=== PATIENT | female | born 1960 | race Caucasian/White ===

== ENCOUNTER 2017-03-14 15:41 | Emergency (ER) | payer OTHER ==
[~2017-03-14] VITALS: Ht 172.7 cm; Wt 89.9 kg
[2017-03-14 15:55] VITALS: BP 147/91
[2017-03-14] MEDS ORDERED: LIDOCAINE VISCOUS 2% 20 ML UDC ONE (16:17)
[2017-03-14] MEDS ORDERED: ALUMINUM HYD/MAG/SIMETHICONE 30 ML UDC ONE (16:17)
[2017-03-14] MEDS ORDERED: DICYCLOMINE HCL LIQUID 10 MG/5 ML UDC ONE (16:29)
[2017-03-14] MEDS ORDERED: LIDOCAINE VISCOUS 2% 20 ML UDC PO ONE (17:00)
[2017-03-14] MEDS ORDERED: DICYCLOMINE HCL LIQUID 10 MG/5 ML UDC PO ONE (17:00)
[2017-03-14] MEDS ORDERED: ALUMINUM HYD/MAG/SIMETHICONE 30 ML UDC PO ONE (17:00)
--- NOTE | 2017-03-14 17:03 | NUR ---
AFTER COMPLETING EKG PT WAS GIVEN GI COCKTAIL INSTRUCTED BY . PT CONTINUES TO WAIT FOR AVAILABLE ROOM FOR MD GALLO.
== END 2017-03-14 17:28 | disposition left against medical advice (07) ==
LOC: MED 15:41
DX: R10.9 Unspecified abdominal pain (principal); Z53.21 Procedure and treatment not carried out due to patient leaving prior to being seen by health care provider
CPT/HCPCS: 81002; 81025; 93005; 99281; 99283

== ENCOUNTER 2017-05-07 10:22 | Emergency (ER) | payer OTHER ==
[~2017-05-07] VITALS: Ht 170.2 cm; Wt 88.5 kg
[2017-05-07 10:49] VITALS: BP 141/89
--- NOTE | 2017-05-07 10:57 | NUR ---
PER DR MALDONADO PT TOOK OWN PRESCRIPTION OXYCODONE 10-325MG, PLACE ON A WHEEL CHAIR AND WHEELED IN THE LOBBY
--- NOTE | 2017-05-07 12:22 | NUR ---
PATIENT IN OF TO BE SEEN BY ERMDg
--- NOTE | 2017-05-07 12:34 | NUR ---
DR. MALDONADO WITH PATIENT IN OF
--- NOTE | 2017-05-07 13:15 | NUR ---
PATIENT BACK FROM CT/US. STILL IN OF.MADE PATIENT COMFORTABLE
--- NOTE | 2017-05-07 13:37 | NUR ---
WITH PATIENT,INFORMING PATIENT RESULTS OF TESTS DONE
[2017-05-07] MEDS ORDERED: KETOROLAC 60 MG/2 ML VIAL IM ONE (13:50)
--- NOTE | 2017-05-07 13:59 | NUR ---
PATIENT MEDICATED FOR LT. ANKLE PAIN
[2017-05-07 14:20] VITALS: BP 140/90
--- NOTE | 2017-05-07 14:20 | NUR ---
Patient discharged with v/s stable. Written and verbal after care instructions given and explained. Patient alert, oriented and verbalized understanding of instructions. Wheel Chair Assisted with to home. All questions addressed prior to discharge. ID band removed. Patient advised to follow up with PMD. Rx of MOTRIN given. Patient educated on indication of medication including possible reaction and side effects. Opportunity to ask questions provided and answered.
== END 2017-05-07 14:20 | disposition home or self-care (01) ==
LOC: MED 10:22
DX: S93.402A Sprain of unspecified ligament of left ankle, initial encounter (principal); X58.XXXA Exposure to other specified factors, initial encounter; Y93.89 Activity, other specified; Y92.89 Other specified places as the place of occurrence of the external cause; Y99.8 Other external cause status
CPT/HCPCS: 73610; 93971; 96372; 99284; J1885

== ENCOUNTER 2017-09-13 14:37 | Inpatient (IN) | payer OTHER ==
[~2017-09-13] VITALS: Ht 170.2 cm; Wt 90.3 kg
[2017-09-13 14:46] VITALS: BP 156/68
--- NOTE | 2017-09-13 14:54 | NUR ---
Patient to bed 11.
[2017-09-13] MEDS ORDERED: NACL 0.9% 1,000 ML IV ONE (15:00)
[2017-09-13] MEDS ORDERED: NITROGLYCERIN 2% 1 GM PKT TP ONE (15:00)
[2017-09-13] MEDS ORDERED: ASPIRIN 81 MG TAB.CHEW PO ONE (15:00)
--- NOTE | 2017-09-13 15:17 | NUR ---
LAB AT BEDSIDE
--- NOTE | 2017-09-13 15:18 | NUR ---
XRAY AT BEDSIDE
[2017-09-13 15:22] LABS: BASOPHILS # (AUTO) 0.2 K/uL (0.00-0.22); BASOPHILS % (AUTO) 2.6 % (0.0-2.0); EOSINOPHILS % (AUTO) 0.6 % (0.0-4.0); HEMATOCRIT 43.5 % (36-48); HEMOGLOBIN 14.9 g/dL (12.0-16.0); LYMPHOCYTES # (AUTO) 1.6 K/uL (2.5-16.5); LYMPHOCYTES % (AUTO) 23.1 % (20.5-51.1); MEAN CORPUSCULAR HEMOGLOBIN 29 pg (27-31); MEAN CORPUSCULAR HGB CONC 34 g/dL (33-37); MEAN CORPUSCULAR VOLUME 84 fL (80-94); MONOCYTES # (AUTO) 0.9 K/uL (0.8-1.0); MONOCYTES % (AUTO) 12.9 % (1.7-9.3); NEUTROPHILS # (AUTO) 4.2 K/uL (1.8-7.7); NEUTROPHILS % (AUTO) 60.8 % (42.2-75.2); PLATELET COUNT (AUTO) 183 K/uL (140-450); RED BLOOD CELL COUNT(AUTO) 5.17 MIL/uL (4.20-5.40); RED CELL DISTRIBUTION WIDTH 13.5 % (11.6-13.7); WHITE BLOOD COUNT (AUTO) 6.9 K/uL (4.8-10.8)
--- NOTE | 2017-09-13 15:30 | NUR ---
DR. SAMPSON AT BEDSIDE
[2017-09-13 15:46] LABS: ALBUMIN 3.9 g/dL (3.4-5.0); ANION GAP 12.6 (8-16); CARBON DIOXIDE 26.7 mmol/L (21-32); POTASSIUM 4.3 mmol/L (3.5-5.1); TOTAL BILIRUBIN 0.6 mg/dL (0.0-1.0)
[2017-09-13 15:50] LABS: PROTHROMBIN TIME 10.9 secs (10.8-13.4)
[2017-09-13] MEDS ORDERED: MORPHINE SULFATE 2 MG/ML SYR IVP ONE (15:50)
[2017-09-13] MEDS ORDERED: LISINOPRIL 5 MG TAB PO ONE (15:50)
[2017-09-13] MEDS ORDERED: LISINOPRIL 5 MG TAB PO SCH (16:04)
--- NOTE | 2017-09-13 16:18 | NUR ---
DR. SAMPSON AT BEDSIDE AGAIN
--- NOTE | 2017-09-13 16:20 | NUR ---
PATIENT PRESENTS TO ED WITH CHEST PAIN . PT STATES HX OF NEUROFIBROSIS,THYROID PROBLEM. DENIES N/V/D; SKIN IS PINK/WARM/DRY; AAOX4 WITH EVEN AND STEADY GAIT; LUNGS CLEAR BL; HR EVEN AND REGULAR; PT DENIES ANY FEVER, SOB, OR COUGH AT THIS TIME; PATIENT STATES PAIN OF 8/10 AT THIS TIME; PATIENT POSITIONED FOR COMFORT; HOB ELEVATED; BEDRAILS UP X2; BED DOWN.
--- NOTE | 2017-09-13 16:38 | NUR ---
PT IN THE BATHROOM AT THIS TIME, PT AAO, NO DISTRESS NOTED.
[2017-09-13] MEDS ORDERED: ALBUTEROL 0.083% 2.5 MG/3 ML NEBU IH PRN (16:55)
[2017-09-13] MEDS ORDERED: MORPHINE SULFATE 2 MG/ML SYR IVP PRN (16:55)
[2017-09-13] MEDS ORDERED: ACETAMINOPHEN 325 MG TAB PO PRN ×2 (16:55→17:55)
[2017-09-13] MEDS ORDERED: ONDANSETRON 4 MG/2 ML VIAL IVP PRN (16:55)
[2017-09-13] MEDS ORDERED: HYDROcodone/APAP 5/325 MG 1 TAB TAB PO PRN (16:55)
--- NOTE | 2017-09-13 17:18 | NUR ---
PT AAO, AT BEDSIDE, NO SOB NOTED AT THIS TIME, CONVERSING WITH ,IVF ONGOING WELL TOLERATED.
--- NOTE | 2017-09-13 17:41 | NUR ---
Pt report given to RUTHIE. Transfer of care at this time.
[2017-09-13 18:00] VITALS: BP 126/72
--- NOTE | 2017-09-13 18:00 | NUR ---
RECEIVED PT ON UNIT VIA [employer], PT IS A/OX4, AMBULATES WITH ASSIST, PT HAS IV ON THE RIGHT HAND, PATENT, INTACT, FLUSHING, PT IS ON O2 2L NC, PT HAS BUMPS/TAG THROUGH OUT BODY, NO S/S OF RESPIRATORY DISTRESS OR DISCOMFORT NOTED, DISCUSSED PLAN OF CARE WITH PT, PT VERBALIZED UNDERSTANDING, ORIENTED PT TO THE ROOM, SAFETY/FALL PRECAUTIONS ARE IN PLACE, CALL LIGHT IS WITHIN REACH, WILL CONTINUE TO MONITOR, PT'S IS AT BEDSIDE.
[2017-09-13] MEDS: MORPHINE SULFATE 2 MG/ML SYR IVP PRN (18:22)
--- NOTE | 2017-09-13 19:14 | NUR ---
ENDORSED PT TO CHEST PAINTING AND SEALING SUPERVISOR NURSE FOR CONTINUITY OF CARE, PT STABLE AT THIS TIME.
--- NOTE | 2017-09-13 19:15 | NUR ---
PATIENT REPORT RECEIVED FROM MORNING NURSE AT BEDSIDE. PATIENT IS AWAKE, ALERT, AND ORIENTED. NO SIGNS AND SYMPTOMS OF DISTRESS NOTED. NO COMPLAINTS OF PAIN AT THIS TIME. PATIENT ON O2 2L NC. IV SITE NOTED ON LEFT HAND. IVF INFUSING WELL. PLAN OF CARE DISCUSSED WITH PATIENT. PATIENT VERBALIZED UNDERSTANDING. BED IN LOWEST POSITION, SIDE RAILS UP AND CALL LIGHT WITHIN REACH. WILL CONTINUE MONITOR.
[2017-09-13] MEDS ORDERED: SIMV10TA1 PO (20:46)
[2017-09-13] MEDS ORDERED: TRAZ-286 PO (20:49)
[2017-09-13] MEDS ORDERED: SERT25TA PO (20:51)
[2017-09-13] MEDS ORDERED: ACET-5636 PO (20:51)
--- NOTE | 2017-09-13 21:00 | NUR ---
PATIENT REQUESTED HEATING PAD FOR LOWER BACK PAIN. NOTIFIED DR. FELICIANO. DR. FELICIANO SAID OK TO PUT IN ORDER FOR HEATING PAD
[2017-09-13] MEDS ORDERED: oxyCODONE/APAP 5/325 MG 1 TAB TAB PO PRN (21:25)
[2017-09-13] MEDS ORDERED: traZODone 50 MG TAB PO SCH (22:20)
[2017-09-13] MEDS ORDERED: SIMVASTATIN 10 MG TAB PO SCH (22:20)
[2017-09-13] MEDS ORDERED: SERTRALINE 50 MG TAB PO SCH (22:20)
[2017-09-13 22:47] LABS: CREATINE KINASE MB 1.2 ng/mL (0-3.6)
[2017-09-13] MEDS: HYDROcodone/APAP 5/325 MG 1 TAB TAB PO PRN (23:44)
[2017-09-14] VITALS: BP 106/65
--- NOTE | 2017-09-14 02:00 | NUR ---
CHECKED ON PATIENT. PATIENT IS ASLEEP. NO SIGNS AND SYMPTOMS OF DISTRESS NOTED. WILL CONTINUE TO MONITOR.
[2017-09-14] MEDS: MORPHINE SULFATE 2 MG/ML SYR IVP PRN ×3 (02:06→14:52)
[2017-09-14 04:00] VITALS: BP 119/72
--- NOTE | 2017-09-14 04:20 | NUR ---
CHECKED ON PATIENT. PATIENT IS RESTING COMFORTABLY IN BED. NO SIGNS AND SYMPTOMS OF DISTRESS NOTED. BREATHING EVEN AND UNLABORED. BED IN LOWEST POSITION, SIDE RAILS UP AND CALL LIGHT WITHIN REACH. WILL CONTINUE TO MONITOR.
[2017-09-14] MEDS: HYDROcodone/APAP 5/325 MG 1 TAB TAB PO PRN (06:41)
--- NOTE | 2017-09-14 06:50 | NUR ---
PATIENT HAS BEEN SCREENED AND CATEGORIZED LOW NUTRITION RISK. PATIENT WILL BE SEEN WITHIN 7 DAYS OF ADMISSION. 09/19/17 BRUCE LONG MS, RDN
--- NOTE | 2017-09-14 07:15 | NUR ---
PATIENT REPORT GIVEN TO MORNING NURSE AT BEDSIDE. PATIENT IS IN STABLE CONDITION
--- NOTE | 2017-09-14 07:16 | NUR ---
RECEIVED REPORT FROM NIGHT NURSE AT BEDSIDE. PATIENT IS ASLEEP BUT AROUSABLE. PATIENT RECEIVED IN STABLE CONDITION. WILL CONTINUE TO MONITOR PATIENT.
[2017-09-14 07:19] LABS: BASOPHILS # (AUTO) 0.1 K/uL (0.00-0.22); BASOPHILS % (AUTO) 0.8 % (0.0-2.0); EOSINOPHILS % (AUTO) 0.5 % (0.0-4.0); HEMATOCRIT 41.8 % (36-48); HEMOGLOBIN 14.4 g/dL (12.0-16.0); LYMPHOCYTES # (AUTO) 1.9 K/uL (2.5-16.5); LYMPHOCYTES % (AUTO) 27.6 % (20.5-51.1); MEAN CORPUSCULAR HEMOGLOBIN 29 pg (27-31); MEAN CORPUSCULAR HGB CONC 34 g/dL (33-37); MEAN CORPUSCULAR VOLUME 85 fL (80-94); MONOCYTES # (AUTO) 1.1 K/uL (0.8-1.0); NEUTROPHILS # (AUTO) 3.7 K/uL (1.8-7.7); NEUTROPHILS % (AUTO) 55.1 % (42.2-75.2); PLATELET COUNT (AUTO) 164 K/uL (140-450); RED BLOOD CELL COUNT(AUTO) 4.93 MIL/uL (4.20-5.40); RED CELL DISTRIBUTION WIDTH 13.8 % (11.6-13.7); WHITE BLOOD COUNT (AUTO) 6.8 K/uL (4.8-10.8)
[2017-09-14 07:41] LABS: ALBUMIN 3.5 g/dL (3.4-5.0); ANION GAP 11.3 (8-16); CARBON DIOXIDE 27.2 mmol/L (21-32); CREATININE 0.9 mg/dL (0.6-1.3); POTASSIUM 4.5 mmol/L (3.5-5.1); TOTAL BILIRUBIN 0.5 mg/dL (0.0-1.0)
[2017-09-14 07:51] LABS: CREATINE KINASE MB 1.2 ng/mL (0-3.6)
[2017-09-14 08:00] VITALS: BP 107/57
[2017-09-14] MEDS ORDERED: LISINOPRIL 10 MG TAB PO SCH (09:00)
[2017-09-14] MEDS ORDERED: ASPIRIN 325 MG TAB PO SCH (09:00)
[2017-09-14] MEDS ORDERED: ASPIRIN 325 MG TABEC PO SCH (09:00)
[2017-09-14] MEDS ORDERED: ENOXAPARIN 40 MG/0.4 ML SYR SUBQ SCH ×2 (09:00)
[2017-09-14 11:55] VITALS: BP 126/50
--- NOTE | 2017-09-14 11:55 | NUR ---
PATIENT AWAITING CT. PATIENT SHOWS NO SIGNS OF RESPIRATORY DISTRESS OR PAIN. PATIENT IN STABLE CONDITION.
[2017-09-14 16:00] VITALS: BP 104/60
--- NOTE | 2017-09-14 16:50 | NUR ---
PATIENT IS IN STABLE CONDITION. DISCHARGE INSTRUCTIONS GIVEN TO PATIENT. PATIENT VERBALIZED UNDERSTANDING. DISCHARGE PAPERS SIGNED AND TAKEN HOME WITH PATIENT. DISCONNECTED IV LINES WITH INTACT CANNULA. PATIENT LEFT WITH ALL HER BELONGINGS ALONG WITH DOCUMENTS. PATIENT DISCHARGED TO HOME AND WHEELED OUT VIA WHEELCHAIR.
[2017-09-14] MEDS ORDERED: traZODone 50 MG TAB PO SCH (21:00)
[2017-09-14] MEDS ORDERED: SIMVASTATIN 10 MG TAB PO SCH (21:00)
[2017-09-14] MEDS ORDERED: SERTRALINE 50 MG TAB PO SCH (21:00)
--- NOTE | 2017-09-17 07:32 | NUR ---
RETRO REVIEW FAXED ER REPORT AND H&P TO [facility] [phone] PHONE [place] [phone]
== END 2017-09-14 16:40 | disposition home or self-care (01) | DRG 203 ==
LOC: MED 14:37 → UNDOADMIN 16:57 → MTU 16:57 → MMU 16:57
PROVIDERS: ADMIT Internal Medicine; ATTEND Internal Medicine
DX: R07.89 Other chest pain (principal); Q85.00 Neurofibromatosis, unspecified; E03.9 Hypothyroidism, unspecified; G89.4 Chronic pain syndrome
CPT/HCPCS: 36415; 71010; 71275; 80053; 82550; 82553; 83880; 84484; 85025; 85379; 85610; 85730; 87081; 93005; 96361; 96374; 99285; J1650; J2270; J7030; Q0092; Q9967

== ENCOUNTER 2018-07-25 11:33 | Emergency (ER) | payer OTHER ==
[~2018-07-25] VITALS: Ht 170.2 cm; Wt 88.2 kg
[~2018-07-25 11:33] MED LIST: ACET-5636 PO; SERT25TA PO; SIMV10TA1 PO; TRAZ-343 PO
[2018-07-25 11:38] VITALS: BP 152/74
--- NOTE | 2018-07-25 11:44 | NUR ---
PT AMBULATES TO BED 4
--- NOTE | 2018-07-25 11:53 | NUR ---
58 YO F BIB SELF W/ C/O RT FLANK PAIN, HEAD ACHE S/P FALL ON THE SHOWER FLOOR LAST SATURDAY; DENIES LOC OR HITTING HER HEAD, DENIES N/V/D. REPORTS THAT SHE DID NOT COME ON SATURDAY BECAUSE SHE WAS IN [place] WHEN SHE FELL, DID NOT THINK IT WAS SERIOUS. PT AAOX4, NEURO APPROPRIATE, SPEAKING IN FULL, COMPLETE SENTENCES. PERRLA INTACT. GCS 15, CMS INTACT, RR EVEN AND UNLABORED. LUNGS BL CLEAR. ABD SOFT, NON-TENDER. BOWEL SOOUNDS ACTIVE X 4. AMBULATORY W/ STEADY GAIT. ER MD NOTIFIED. PT NEEDS MET, SAFETY PRECAUTIONS IN PLACE. WILL CONTINUE TO MONITOR.
--- NOTE | 2018-07-25 11:54 | NUR ---
DR PENN EVALUATING AT BEDSIDE
--- NOTE | 2018-07-25 12:04 | NUR ---
Patient being evaluated by physician at bedside.
--- NOTE | 2018-07-25 12:22 | NUR ---
XRAY AT BEDSIDE
--- NOTE | 2018-07-25 12:35 | NUR ---
U/S AT BEDSIDE AT THIS TIME
--- NOTE | 2018-07-25 13:15 | NUR ---
PT RESTING COMFORTABLY IN [facility] AT THIS TIME W/ VSS, RR EVEN AND UNLABORED. SAFETY PRECAUTIONS IN PLACE. WILL CONTINUE TO MONITOR.
--- NOTE | 2018-07-25 14:09 | NUR ---
PT UNABLE TO PROVIDE URINE SAMPLE. ER NOTIFIED.
[2018-07-25 14:23] VITALS: BP 144/68
--- NOTE | 2018-07-25 14:23 | NUR ---
Patient discharged with v/s stable. Written and verbal after care instructions given and explained. Patient verbalized understanding. Ambulatory with steady gait. All questions addressed prior to discharge. Advised to follow up with PMD.
== END 2018-07-25 14:23 | disposition home or self-care (01) ==
LOC: MED 11:33
DX: S30.1XXA Contusion of abdominal wall, initial encounter (principal); Z79.899 Other long term (current) drug therapy; W01.10XA Fall on same level from slipping, tripping and stumbling with subsequent striking against unspecified object, initial encounter; Y93.89 Activity, other specified; Y92.89 Other specified places as the place of occurrence of the external cause; Y99.8 Other external cause status
CPT/HCPCS: 71045; 76770; 99284; Q0092

== ENCOUNTER 2018-09-07 09:36 | Emergency (ER) | payer OTHER ==
[~2018-09-07] VITALS: Ht 170.2 cm; Wt 87.3 kg
[2018-09-07 09:44] VITALS: BP 148/73
[2018-09-07] MEDS ORDERED: KETOROLAC 60 MG/2 ML VIAL IM ONE (10:00)
[2018-09-07 10:16] VITALS: BP 135/69
== END 2018-09-07 10:17 | disposition home or self-care (01) ==
LOC: MED 09:36
DX: N12 Tubulo-interstitial nephritis, not specified as acute or chronic (principal); Z79.899 Other long term (current) drug therapy
CPT/HCPCS: 87086; 96372; 99283; J1885; 81002

== ENCOUNTER 2020-05-21 08:32 | Emergency (ER) | payer OTHER ==
[~2020-05-21] VITALS: Ht 157.5 cm; Wt 83.9 kg
--- NOTE | 2020-05-21 08:32 | NUR ---
Patient ambulated to bed 7. RN evaluating patient at bedside.
[2020-05-21 08:44] VITALS: BP 135/70
--- NOTE | 2020-05-21 08:44 | NUR ---
60 Y/O F C/C UTI SYMPTOMS X 10 DAYS. PER PT GIVEN ABX BACTRIM WITH NO RELIEF, 10 DAY COURSE GIVEN, PT ON DAY 9 OF TX. PER PT HX OF FREQUENT UTI'S. NKA. HX HDL. RX SIMVASTATIN. SX RIB REMOVAL,FIBROSIS. DENIES NVD. VSS. SIDE RAIL X1.
[2020-05-21 09:16] LABS: APPEARANCE,URINE HAZY (CLEAR); BILIRUBIN,URINE NEGATIVE (NEGATIVE); BLOOD, URINE 1+ (NEGATIVE); COLOR,URINE YELLOW (YELLOW); LEUKOCYTE ESTERASE ,URINE 3+ (NEGATIVE); NITRITE, URINE POSITIVE (NEGATIVE); UGLUCOSE NEGATIVE (NEGATIVE)
[2020-05-21 09:23] LABS: WBC,URINE 16-25 (MOD) /HPF (0-5)
[2020-05-21 09:28] VITALS: BP 135/70
--- NOTE | 2020-05-21 09:28 | NUR ---
Patient discharged with v/s stable. Written and verbal after care instructions given and explained. Patient alert, oriented and verbalized understanding of instructions. Ambulatory with steady gait. All questions addressed prior to discharge. ID band removed. Patient advised to follow up with PMD. Rx of CIPROFLOXACIN given. Patient educated on indication of medication including possible reaction and side effects. Opportunity to ask questions provided and answered.
== END 2020-05-21 09:28 | disposition home or self-care (01) ==
LOC: MED 08:32
DX: N39.0 Urinary tract infection, site not specified (principal); E07.9 Disorder of thyroid, unspecified; Z98.890 Other specified postprocedural states; Z79.899 Other long term (current) drug therapy
CPT/HCPCS: 81001; 81025; 87086; 87186; 99283

== ENCOUNTER 2020-10-01 11:23 | Emergency (ER) | payer OTHER ==
[~2020-10-01] VITALS: Ht 170.2 cm; Wt 80.3 kg
[2020-10-01 11:42] VITALS: BP 129/69
--- NOTE | 2020-10-01 11:49 | NUR ---
60YO F, KNOWN CASE PF SPINAL STENOSIS, C/O LEFT SHOULDER AND NAPE PAIN SINCE THIS AM. PT STATES PAIN OF 10/10. IN ED, VSS. PT ABLE TO MOVE EXTREMITIES. ERMD MADE AWARE OF PT STATUS. PMH: HTN, SPINAL STENOSIS, CHRONIC PAIN NKA
[2020-10-01] MEDS ORDERED: KETOROLAC 60 MG/2 ML VIAL IM ONE (13:50)
[2020-10-01 14:36] VITALS: BP 129/69
== END 2020-10-01 14:36 | disposition home or self-care (01) ==
LOC: MED 11:23
DX: M25.511 Pain in right shoulder (principal); M06.9 Rheumatoid arthritis, unspecified; M48.02 Spinal stenosis, cervical region
CPT/HCPCS: 71045; 73030; 96372; 99284; J1885

== ENCOUNTER 2021-03-15 13:28 | Emergency (ER) | payer OTHER ==
[~2021-03-15] VITALS: Ht 170.2 cm; Wt 81.6 kg
[2021-03-15 13:30] VITALS: BP 156/73
--- NOTE | 2021-03-15 13:34 | NUR ---
patient ambulated to bed 9
--- NOTE | 2021-03-15 13:42 | NUR ---
60/FEMALE WITH C/O RUQ PAIN THAT RADIATES TO UPPER BACK. PT STATES PAIN "IS THROBBING AND SHARP" AND HAS FELT PAIN FOR X1 WEEK. STATES RASH APPERARED THIS MORNING FOUND ON UPPER BACK NKDA HX CHRONIC PAIN, HYPOTHYROID
[2021-03-15] MEDS ORDERED: ACYC-278 PO (14:24)
[2021-03-15] MEDS ORDERED: PRED20TA5 PO (14:24)
[2021-03-15 14:37] VITALS: BP 156/73
--- NOTE | 2021-03-15 14:37 | NUR ---
Patient discharged with v/s stable. Written and verbal after care instructions given and explained. Patient alert, oriented and verbalized understanding of instructions. Ambulatory with steady gait. All questions addressed prior to discharge. ID band removed. Patient advised to follow up with PMD. Rx of Acyclovir 1 tabley 5x dialy for 7 days and Predisone 40 mg PO daily for 5 days given. Patient educated on indication of medication including possible reaction and side effects. Opportunity to ask questions provided and answered.
== END 2021-03-15 14:37 | disposition home or self-care (01) ==
LOC: MED 13:28
DX: B02.9 Zoster without complications (principal); M54.5 Low back pain; I10 Essential (primary) hypertension; E03.9 Hypothyroidism, unspecified; Z98.890 Other specified postprocedural states; Z79.899 Other long term (current) drug therapy
CPT/HCPCS: 81002; 99283

== ENCOUNTER 2021-07-31 09:00 | Emergency (ER) | payer OTHER ==
[~2021-07-31] VITALS: Ht 170.2 cm; Wt 79.4 kg
[~2021-07-31 09:00] MED LIST changes: +ACYC-278 PO; +PRED20TA5 PO
--- NOTE | 2021-07-31 09:12 | NUR ---
PT AMB TO BED 10.
--- NOTE | 2021-07-31 09:19 | NUR ---
DR KINGSLEY AT BEDSIDE EXAMINING PT
[2021-07-31] MEDS ORDERED: NACL 0.9% 1,000 ML IV ONE (09:25)
[2021-07-31] MEDS ORDERED: KETOROLAC 15 MG/ML VIAL IVP ONE (09:25)
--- NOTE | 2021-07-31 09:40 | NUR ---
60 Y/O FEMALE C/O DIFFICULTY BREATHING, COUGH, RODRIGUEZ, SORE THROAT, BODY ACHE X 2 DAYS. O2SAT 94% AT THIS TIME. PT STATES 9/10 THROBBING PAIN. LUNG SOUNDS CLEAR. SKIN WARM AND DRY. PAPULES NOTED ALL OVER BODY. PMH: HYPOTHYROID, HLD, DEPRESSION, "SKIN CONDITION"
[2021-07-31 09:47] LABS: HEMATOCRIT 44.8 % (36-48); HEMOGLOBIN 15.7 g/dL (12.0-16.0); LYMPHOCYTES # (AUTO) 1.2 K/uL (2.5-16.5); LYMPHOCYTES % (AUTO) 25.5 % (20.5-51.1); MEAN CORPUSCULAR HEMOGLOBIN 30 pg (27-31); MEAN CORPUSCULAR HGB CONC 35 g/dL (33-37); MEAN CORPUSCULAR VOLUME 84.5 fL (80-94); MONOCYTES # (AUTO) 1.2 K/uL (0.8-1.0); MONOCYTES % (AUTO) 26.8 % (1.7-9.3); NEUTROPHILS # (AUTO) 2.2 K/uL (1.8-7.7); NEUTROPHILS % (AUTO) 46.7 % (42.2-75.2); PLATELET COUNT (AUTO) 128 K/uL (140-450); RED CELL DISTRIBUTION WIDTH 13.8 % (11.6-13.7); WHITE BLOOD COUNT (AUTO) 4.6 K/uL (4.8-10.8)
--- NOTE | 2021-07-31 09:47 | NUR ---
TITI SWAB COLLECTED AND BLOOD LAB COLLECTED, HANDED TO JERRY BISWAS
--- NOTE | 2021-07-31 09:47 | NUR ---
XRAY AT BEDSIDE
[2021-07-31 10:01] LABS: ALBUMIN 4.1 g/dL (3.4-5.0); ANION GAP 9.5 (8-16); CARBON DIOXIDE 29.1 mmol/L (21-32); POTASSIUM 3.6 mmol/L (3.5-5.1); TOTAL BILIRUBIN 0.7 mg/dL (0.0-1.0)
--- NOTE | 2021-07-31 10:33 | NUR ---
PT STATES PAIN LEVEL IS AT 7/10, "I TAKE PERCOCET AT HOME" ERMD MADE AWARE
[2021-07-31] MEDS ORDERED: oxyCODONE/APAP 5/325 MG 1 TAB TAB PO ONE (10:35)
[2021-07-31] MEDS ORDERED: DOXY-690 PO (10:46)
--- NOTE | 2021-07-31 11:00 | NUR ---
Patient discharged with v/s stable. Written and verbal after care instructions given and explained. Patient alert, oriented and verbalized understanding of instructions. Ambulatory with steady gait. All questions addressed prior to discharge. ID band removed. Patient advised to follow up with PMD. Rx of VIBRAMYCIN given. Patient educated on indication of medication including possible reaction and side effects. Opportunity to ask questions provided and answered.
== END 2021-07-31 11:00 | disposition home or self-care (01) ==
LOC: MED 09:00
DX: J18.9 Pneumonia, unspecified organism (principal); Z20.822 Contact with and (suspected) exposure to COVID-19; I10 Essential (primary) hypertension; E03.9 Hypothyroidism, unspecified; Z79.899 Other long term (current) drug therapy; Z79.891 Long term (current) use of opiate analgesic; Z79.2 Long term (current) use of antibiotics
CPT/HCPCS: 36415; 71045; 80053; 83605; 83880; 84484; 85025; 87426; 93005; 96361; 96374; 99285; J1885; J7030; Q0092

== ENCOUNTER 2021-10-01 10:15 | Emergency (ER) | payer OTHER, SELFPAY ==
[~2021-10-01] VITALS: Ht 170.2 cm; Wt 79.8 kg
[~2021-10-01 10:15] MED LIST changes: +DOXY-690 PO
[2021-10-01 10:31] VITALS: BP 141/71
--- NOTE | 2021-10-01 10:36 | NUR ---
BIB C/O COUGH,7/10 RODRIGUEZ, SORE THROAT, WEAKNESS X 2 DAYS. O2SAT 94% AT THIS TIME. PMH: HYPER THYROID, PT ON O2 5L/M AT NIGHT AT HOME AFTER GETTING PNA IN 07/31/21
--- NOTE | 2021-10-01 11:08 | NUR ---
COVID PCR, COVID RAPID, FLU SWABS DONE.
[2021-10-01] MEDS ORDERED: [UNRECOGNIZED DRUG - CODE] PO (13:08)
[2021-10-01] MEDS ORDERED: ALBU0.0912 IH (13:09)
[2021-10-01] MEDS ORDERED: PROMETHAZINE DM 6.25/15MG-5ML ORASYR PO PRN (13:10)
--- NOTE | 2021-10-01 13:28 | NUR ---
Patient discharged with v/s stable. Written and verbal after care instructions given and explained. Patient alert, oriented and verbalized understanding of instructions. Ambulatory with steady gait. All questions addressed prior to discharge. ID band removed. Patient advised to follow up with PMD. Rx of PROVENTIL given. Patient educated on indication of medication including possible reaction and side effects. Opportunity to ask questions provided and answered.
== END 2021-10-01 13:25 | disposition home or self-care (01) ==
LOC: MED 10:15
DX: U07.1 COVID-19 (principal); J12.82 Pneumonia due to coronavirus disease 2019
CPT/HCPCS: 71045; 87426; 87804; 93005; 99285; Q0092; U0003

== ENCOUNTER 2022-10-23 09:18 | Inpatient (IN) | payer OTHER ==
[~2022-10-23] VITALS: Ht 157.5 cm; Wt 80.7 kg
[~2022-10-23 09:18] MED LIST changes: +ALBU0.0912 IH; +SIMV-371 PO; -SIMV10TA1 PO; +[UNRECOGNIZED DRUG - CODE] PO
[2022-10-23 09:32] VITALS: BP 143/95
[2022-10-23] MEDS ORDERED: IPRATROPIUM 0.02% 0.5 MG/2.5 ML NEBU INH ONE (09:55)
[2022-10-23] MEDS ORDERED: ALBUTEROL 0.083% 2.5 MG/3 ML NEBU INH ONE (09:55)
--- NOTE | 2022-10-23 10:02 | NUR ---
PATIENT PRESENTS TO ED WITH GENERALIZED WEAKNESS AND GENERALIZED PAIN STARTING EARLY THIS MORNING . PT STATES SHE HAS HX OF CHRONIC PAIN AND ALSO USES HOME O2 . DENIES N/V/D; SKIN IS PALE/WARM/DRY; AAOX4 WITH UNSTEADY GAIT; LUNGS CLEAR AND DIMINISHED BL; PATIENT REPORTS EPISODE OF SOB AT MIDNIGHT. HR EVEN AND REGULAR; PATIENT STATES PAIN OF 10/10 AT THIS TIME; VSS; PATIENT POSITIONED FOR COMFORT; AND IS ON O2 5L VIA NC. HOB ELEVATED; BEDRAILS UP X2; BED DOWN. ER MD MADE AWARE OF PT STATUS.
[2022-10-23] MEDS ORDERED: methylPREDNISolone SS 125 MG/2 ML VIAL IVP ONE (10:15)
[2022-10-23] MEDS ORDERED: MORPHINE SULFATE 4 MG/ML SYR IVP ONE (10:15)
[2022-10-23] MEDS ORDERED: ONDANSETRON 4 MG/2 ML VIAL IVP ONE (10:15)
--- NOTE | 2022-10-23 10:47 | NUR ---
PT WAS TITRATED FROM NRM TO NC 5L. PT IS SATING 95%. PT STATED SHE IS ON 5L NC AT HOME AND THIS IS WHAT HELPS HER. PT GOT HER BREATHING TX AND SHE SEEMED TO IMPROVE HERSOB. WILL CONTINUE TO MONITOR.
[2022-10-23 11:26] LABS: HEMATOCRIT 36.5 % (36-48); HEMOGLOBIN 12.8 g/dL (12.0-16.0); MEAN CORPUSCULAR HEMOGLOBIN 28 pg (27-31); MEAN CORPUSCULAR HGB CONC 35 g/dL (33-37); MEAN CORPUSCULAR VOLUME 81.1 fL (80-94); PLATELET COUNT (AUTO) 128 K/uL (140-450); RED CELL DISTRIBUTION WIDTH 15.5 % (11.6-13.7); WHITE BLOOD COUNT (AUTO) 13.6 K/uL (4.8-10.8)
[2022-10-23 11:35] LABS: APPEARANCE,URINE HAZY (CLEAR); COLOR,URINE YELLOW (YELLOW)
[2022-10-23 11:38] LABS: BLOOD, URINE MODERATE (NEGATIVE); UGLUCOSE NEGATIVE (NEGATIVE)
[2022-10-23 11:39] LABS: BILIRUBIN,URINE NEGATIVE (NEGATIVE); NITRITE, URINE POSITIVE (NEGATIVE)
[2022-10-23 11:40] LABS: LEUKOCYTE ESTERASE ,URINE 3+ (NEGATIVE)
[2022-10-23 11:48] LABS: RBC,URINE 11-20 (MOD) /HPF (0-5); WBC,URINE 16-25 (MOD) /HPF (0-5)
[2022-10-23 11:57] LABS: ALBUMIN 4.1 g/dL (3.4-5.0); ANION GAP 14.6 (8-16); CARBON DIOXIDE 26.9 mmol/L (21-32); CREATININE 1.2 mg/dL (0.6-1.3); POTASSIUM 3.5 mmol/L (3.5-5.1); TOTAL BILIRUBIN 1.8 mg/dL (0.0-1.0)
[2022-10-23] MEDS ORDERED: cefTRIAXone 1,000 MG VIAL ONE (12:37)
[2022-10-23 12:55] LABS: LYMPHOCYTES % (MANUAL) 9 % (20-46); MONOCYTES % (MANUAL) 12 % (5-12)
[2022-10-23] MEDS ORDERED: NACL 0.9% 1,000 ML IV ONE (13:05)
[2022-10-23] MEDS ORDERED: ALBU1SPR IH (13:08)
[2022-10-23] MEDS ORDERED: [UNRECOGNIZED DRUG - CODE] PO (13:08)
[2022-10-23] MEDS ORDERED: ACET-5634 PO (13:08)
[2022-10-23] MEDS ORDERED: LEVO0.083 PO (13:08)
[2022-10-23] MEDS ORDERED: CALC-1030 PO (13:08)
[2022-10-23] MEDS ORDERED: BIOT10002 PO (13:08)
[2022-10-23] MEDS ORDERED: BUPR150T12 PO (13:08)
[2022-10-23] MEDS ORDERED: TRAZ-343 PO (13:08)
[2022-10-23] MEDS ORDERED: MULT-2253 PO (13:08)
--- NOTE | 2022-10-23 13:41 | NUR ---
patient in bed, provided with snacks no s/s of acute dsitress. Aware of pending admission and agreeable with plan of care
[2022-10-23] MEDS ORDERED: ALBUTEROL SULFATE/IPRATROPIU 3 ML SOL IH PRN (13:55)
[2022-10-23] MEDS ORDERED: ONDANSETRON 4 MG/2 ML VIAL IVP PRN (13:55)
[2022-10-23] MEDS ORDERED: ACETAMINOPHEN 325 MG TAB PO PRN (13:55)
[2022-10-23] MEDS ORDERED: MAGNESIUM OXIDE 400 MG TAB PO PRN (13:55)
[2022-10-23] MEDS ORDERED: HYDROcodone/APAP 5/325 MG 1 TAB TAB PO PRN (13:55)
[2022-10-23] MEDS ORDERED: POTASSIUM CHLORIDE 10 MEQ TABER PO PRN (13:55)
[2022-10-23] MEDS ORDERED: KCL 20 MEQ/WATER INJ PREMIX 200 ML IV PRN (13:55)
[2022-10-23] MEDS ORDERED: MAG SULF 2000 MG/WATER PREMIX 50 ML IV PRN (13:55)
[2022-10-23] MEDS: MORPHINE SULFATE 4 MG/ML SYR IVP PRN ×2 (14:56→20:55)
[2022-10-23] MEDS: NACL 0.9% 1,000 ML IV SCH ×2 (14:58→23:57)
--- NOTE | 2022-10-23 15:00 | NUR ---
PATIENT IN BED WITH NO S/S OF ACUTE DISTRESS. PLAN OF CARE ONGOING
--- NOTE | 2022-10-23 15:17 | NUR ---
SPOKE WITH DR. PAK WITH REGARDS TO REPEAT LACTATE RESULTS. PER MD, REPEAT LACTATE IN AM AND NO FURTHER ANTIBIOTICS NECESSARY SINCE BP IS HOLDING.
--- NOTE | 2022-10-23 17:12 | NUR ---
PATIENT SITTING UP IN BED, NO S/S OF ACUTE DISTRESS. PLAN OF CARE ONGOING.
--- NOTE | 2022-10-23 19:50 | NUR ---
62 Y/O F PRESENTS WITH SEPSIS AND UTI. PT STATES SHE HAS PAIN 10/10 AND URGENCY TO URINATE. PT APPEARS ANXIOUS TO MOVE AND STATES SHE IS SICK OF BEING IN THE ER. PT IS A&OX4, SKIN INTACT, DENIES NVD AND BEING ON BLOOD THINNERS. PT IS AMBULATORY WITH ASSIST DUE TO FEELING DIZZY. PT HAS A BEDSIDE COMMODE. PT IS ON A CARDIAC DIET, OXIMIZER 5L AND STATED PAIN WAS UNRELIVED WITH NORCO. PT STATES SHE NORMALLY IS ON 5L O2 AT HOME. PT HAS A 18G R AC. PMH- ANXIETY, DEPRESSION, THYROID DISEASE, NEUROFIBROMATOSIS, REMOVAL OF R 8-10 RIBS IN 2003, AND LUMBAR SPINE FUSION. NKA
--- NOTE | 2022-10-23 19:50 | NUR ---
PT AWAITING ADMISSION. ON PHOTO MASK PROCESSOR. PT APPEARS AGITATED AND READY TO GET MOVED. PT STATES SHE SUFFERS FROM ANXIETY AND DEPRESSION.
--- NOTE | 2022-10-23 20:00 | NUR ---
Patient will be admitted to care of DR. PAK. Admited to TELE. Will go to room 119B. Belongings list completed. Report to JIMMY TELLO.
--- NOTE | 2022-10-23 20:05 | NUR ---
RECEIVED PT FROM ER VIA KARON. PT IS AAOX4 ON 5L NC WITH HUMIDIFIER. PT NOT IN ANY RESPIRATORY DISTRESS. PT HAS 18 GAUGE ON RIGHT AC RUNNING AT 80 CC/HR. EDUCATED PT GIS SOFTWARE ENGINEER LIGHT SYSTEM AND ROOM ENVIRONMENT. POC DISCUSSED. WILL CONTINUE TO MONITOR.
[2022-10-23 20:13] VITALS: BP 128/59
--- NOTE | 2022-10-23 22:17 | NUR ---
PT COMPLAIN OF A RODRIGUEZ. TYLENOL WAS GIVEN. PT COMPLAINED OF MOSTLY RIGHT SIDED ABD PAIN AND SOME CHEST PAIN 8/10. MORPHINE WAS GIVEN EARLIER. VITAL STABLE. REASSESSED AND PT SAID IT HELPS A LITTLE BIT. SHE STATES SHE ALWAYS HAS PAIN AND ITS CHRONIC. NO OTHER COMPLAINS. WILL CONTINUE TO MONITOR.
--- NOTE | 2022-10-23 22:44 | NUR ---
The patient's care was reviewed and supervised by Sylvia Henao RN.
[2022-10-24] VITALS: BP 116/52
--- NOTE | 2022-10-24 00:35 | NUR ---
OBSERVED PT. PT IS SLEEPING COMFORTABLY IN BED. BREATHING EVEN AND UNLABORED. CALL LIGHT WITHIN REACH. WILL CONTINUE TO MONITOR.
[2022-10-24] MEDS: MORPHINE SULFATE 4 MG/ML SYR IVP PRN ×3 (01:37→10:36)
[2022-10-24 04:00] VITALS: BP 124/64
[2022-10-24 05:52] LABS: BASOPHILS % (AUTO) 0.3 % (0.0-2.0); EOSINOPHILS % (AUTO) 0.3 % (0.0-4.0); HEMOGLOBIN 11.2 g/dL (12.0-16.0); LYMPHOCYTES # (AUTO) 0.7 K/uL (2.5-16.5); LYMPHOCYTES % (AUTO) 4.3 % (20.5-51.1); MEAN CORPUSCULAR HEMOGLOBIN 28 pg (27-31); MEAN CORPUSCULAR HGB CONC 34 g/dL (33-37); MEAN CORPUSCULAR VOLUME 82.4 fL (80-94); MONOCYTES # (AUTO) 2.5 K/uL (0.8-1.0); NEUTROPHILS # (AUTO) 12.3 K/uL (1.8-7.7); NEUTROPHILS % (AUTO) 79.1 % (42.2-75.2); PLATELET COUNT (AUTO) 129 K/uL (140-450); RED CELL DISTRIBUTION WIDTH 15.8 % (11.6-13.7); WHITE BLOOD COUNT (AUTO) 15.6 K/uL (4.8-10.8)
[2022-10-24] MEDS: LEVOTHYROXINE 0.088 MG TAB PO SCH (05:52)
[2022-10-24 06:23] LABS: ALBUMIN 3.6 g/dL (3.4-5.0); ANION GAP 12.2 (8-16); CREATININE 0.9 mg/dL (0.6-1.3); MAGNESIUM 1.9 mg/dL (1.8-2.4); POTASSIUM 4.2 mmol/L (3.5-5.1); TOTAL BILIRUBIN 0.5 mg/dL (0.0-1.0)
--- NOTE | 2022-10-24 06:25 | NUR ---
PT COMPLAIN OF RIGHT SIDED PAIN AGAIN. MORPHINE GIVEN. PT ALSO WANTED ANOTHER BLANKET. NO OTHER COMPLAINS. WILL CONTINUE TO MONITOR THE PT.
--- NOTE | 2022-10-24 07:21 | NUR ---
ENDORSED PT TO DAY SHIFT RN FOR CONTINUITY OF CARE. PT IS STABLE.
[2022-10-24 08:00] VITALS: BP 128/58
--- NOTE | 2022-10-24 08:51 | NUR ---
PATIENT HAS BEEN SCREENED AND CATEGORIZED MODERATE NUTRITION RISK. PATIENT WILL BE SEEN WITHIN 3-5 DAYS OF ADMISSION. REVIEWED BY JUNIOR PHAN RD
[2022-10-24] MEDS: VITAMIN D 400 IU TAB PO SCH (09:00)
[2022-10-24] MEDS: buPROPion 150 MG TABER PO SCH (09:00)
[2022-10-24] MEDS: ENOXAPARIN 40 MG/0.4 ML SYR SUBQ SCH (09:00)
[2022-10-24] MEDS: NACL 0.9% 1,000 ML IV SCH (10:44)
[2022-10-24 12:00] VITALS: BP 115/60
[2022-10-24] MEDS: MORPHINE SULFATE 2 MG/ML SYR IVP PRN ×2 (14:48→20:16)
--- NOTE | 2022-10-24 15:23 | NUR ---
PATIENT ON 5L NC (BASELINE). IVF INFUSING ORDERED. MORPHINE GIVEN PRN ORDERED FOR PAIN. BLOOD CULTURES RESULTED GRAM NEGATIVE RODS - MD NOTIFIED. PATIENT ABLE TO AMBULATE INDEPENDENTLY TO BATHROOM. VOIDING. AFEBRILE.
[2022-10-24 16:00] VITALS: BP 131/55
--- NOTE | 2022-10-24 19:00 | NUR ---
CARE ENDORSED TO NURSE MARQUEZ.
--- NOTE | 2022-10-24 19:30 | NUR ---
RECEIVED PT FROM DAY SHIFT RN FOR CONTINUITY OF CARE. PT IS ALERT AND ORIENTATED. PT IS ON 5L NC SATING 95%. PT HAS 18 GAUGE ON RIGHT AC RUNNING NS 80 CC/HR. POC DISCUSSED. WILL CONTINUE TO MONITOR THE PT.
[2022-10-24 20:00] VITALS: BP 140/71
[2022-10-24] MEDS: SIMVASTATIN 10 MG TAB PO SCH (20:16)
[2022-10-24] MEDS: SERTRALINE 50 MG TAB PO SCH (20:16)
[2022-10-24] MEDS: traZODone 50 MG TAB PO SCH (20:16)
--- NOTE | 2022-10-24 21:16 | NUR ---
PT COMPLAINING OF RIGHT SIDED PAIN AND BACK PAIN. MORPHINE WAS GIVEN. PT REFUSED ZOLOFT. ALL OTHER SCHEDULE MEDICATIONS GIVEN. NO ADVERSE REACTION NOTED. WILL CONTINUE TO MONITOR THE PT.
[2022-10-25] VITALS: BP 126/59
[2022-10-25] MEDS: MORPHINE SULFATE 2 MG/ML SYR IVP PRN ×6 (02:02→23:49)
--- NOTE | 2022-10-25 02:02 | NUR ---
PT WAS COMPLAINING OF RIGHT SIDED PAIN AGAIN 05/02. MORPHINE WAS GIVEN. NO OTHER COMPLAINS. WILL CONTINUE TO MONITOR THE PT.
[2022-10-25] MEDS: NACL 0.9% 1,000 ML IV SCH ×2 (03:25→15:55)
[2022-10-25 04:00] VITALS: BP 123/59
[2022-10-25 05:56] LABS: BASOPHILS % (AUTO) 0.3 % (0.0-2.0); EOSINOPHILS % (AUTO) 0.2 % (0.0-4.0); HEMATOCRIT 30.9 % (36-48); HEMOGLOBIN 10.6 g/dL (12.0-16.0); LYMPHOCYTES # (AUTO) 0.9 K/uL (2.5-16.5); LYMPHOCYTES % (AUTO) 14.1 % (20.5-51.1); MEAN CORPUSCULAR HEMOGLOBIN 29 pg (27-31); MEAN CORPUSCULAR HGB CONC 34 g/dL (33-37); MEAN CORPUSCULAR VOLUME 82.7 fL (80-94); MONOCYTES # (AUTO) 1.9 K/uL (0.8-1.0); NEUTROPHILS # (AUTO) 3.7 K/uL (1.8-7.7); NEUTROPHILS % (AUTO) 56.4 % (42.2-75.2); PLATELET COUNT (AUTO) 123 K/uL (140-450); RED BLOOD CELL COUNT(AUTO) 3.74 MIL/uL (4.20-5.40); RED CELL DISTRIBUTION WIDTH 15.9 % (11.6-13.7); WHITE BLOOD COUNT (AUTO) 6.6 K/uL (4.8-10.8)
[2022-10-25] MEDS: LEVOTHYROXINE 0.088 MG TAB PO SCH (06:41)
[2022-10-25 06:43] LABS: ALBUMIN 3.2 g/dL (3.4-5.0); ANION GAP 8.4 (8-16); CARBON DIOXIDE 27.2 mmol/L (21-32); CREATININE 0.9 mg/dL (0.6-1.3); MAGNESIUM 1.7 mg/dL (1.8-2.4); POTASSIUM 3.6 mmol/L (3.5-5.1); TOTAL BILIRUBIN 0.4 mg/dL (0.0-1.0)
--- NOTE | 2022-10-25 07:15 | NUR ---
ENDORSED PT TO DAY SHIFT RN FOR CONTINUITY OF CARE. PT IS STABLE.
[2022-10-25 08:00] VITALS: BP 124/54
[2022-10-25] MEDS: ENOXAPARIN 40 MG/0.4 ML SYR SUBQ SCH ×2 (09:00→09:55)
[2022-10-25] MEDS: VITAMIN D 400 IU TAB PO SCH (09:56)
[2022-10-25] MEDS: buPROPion 150 MG TABER PO SCH (09:56)
[2022-10-25 12:00] VITALS: BP 138/60
--- NOTE | 2022-10-25 15:10 | NUR ---
TABITHA HONG MET WITH PT AT BEDSIDE TO COMPLETE ASSESSMENT. PT RESIDES IN A SINGLE STORY HOME WITH HER [place], AT THE ADDRESS LISTED ON FILE. PT IDENTIFIED PREM WHALEN, EMERGENCY CONTACT AND DECLINED TO ADD ADDITIONAL EC. PT DENIES AD IN PLACE AND DECLINED AD OFFERED BY [facility]. PT REPORTS MEETING WITH HER PCP, DR GILLIS REGULARLY, LAST VISIT; 1.5 MONTHS AGO. PT REPORTS MEETING W/PULM ONCE EVERY THREE MONTHS, PSYCHIATRIST ONE TIME MONTHLY VIA TELEPHONE, PAIN MANAGEMENT 1X MONTH AND RECENTLY BEGAN SEEING A CASTING REPAIRER ROUGHLY ONE MONTH AGO. PT REPORTS MEDICATION COMPLIANCE AND REPORTS RECEIVING MEDICATION FROM [facility] [place], WHEN NEEDED. PT REPORTS UTILIZING W/C, [place] . PT ABLE TO COMPLETE ADL'S INDEPENDENTLY. PT REPORTS MENTAL HX OF DEPRESSION AND ANXIETY AND REPORTS SX'S ARE WELL MANAGED WITH CURRENT MEDICATIONS. PT DENIES HX OF SUBSTANCE USE, DIABETES, DIALYSIS TX AND SNF PLACEMENT. PT REPORTS RECEIVING HH FROM NOVEMBER - MAY 14' WITH [facility]. Addendum: 10/25/22 at 1514 by Brayan SOTELO Amended: Links added.
[2022-10-25 16:00] VITALS: BP 132/73
--- NOTE | 2022-10-25 19:30 | NUR ---
RECEIVED REPORT FROM DAY SHIFT NURSE JA FOR CONTINUITY OF CARE. PT AWAKE WITH FAMILY MEMBER AT BEDSIDE. RESPIRATIONS EVEN AND UNLABORED ON 5L NC. PT CONTINENT TO BOWEL AND BLADDER WITH BEDSIDE COMMODE AT BEDSIDE. INITIAL ASSESSMENT DONE. POC DISCUSSED WITH THE PT AND RN VICENTE. CALL LIGHT WITHIN REACH. SAFETY PRECAUTIONS IN PLACE.
[2022-10-25] MEDS ORDERED: DOCUSATE SODIUM 100 MG GELCAP PO PRN (19:55)
[2022-10-25 20:00] VITALS: BP 131/64
--- NOTE | 2022-10-25 20:00 | NUR ---
Patient's Plan of Care was discussed and reviewed with SHIRRING MACHINE OPERATOR AUTOMATIC: LELA MARTINEZ
[2022-10-25] MEDS: traZODone 50 MG TAB PO SCH (20:37)
[2022-10-25] MEDS: SERTRALINE 50 MG TAB PO SCH (20:37)
[2022-10-25] MEDS: SIMVASTATIN 10 MG TAB PO SCH (20:37)
--- NOTE | 2022-10-25 20:37 | NUR ---
ADMINISTERED DUE MEDS. PT TOLERATED WELL.
[2022-10-26 04:00] VITALS: BP 136/60
[2022-10-26] MEDS: NACL 0.9% 1,000 ML IV SCH (04:26)
[2022-10-26] MEDS: MORPHINE SULFATE 2 MG/ML SYR IVP PRN ×2 (05:26→09:32)
[2022-10-26] MEDS: LEVOTHYROXINE 0.088 MG TAB PO SCH (05:31)
--- NOTE | 2022-10-26 05:38 | NUR ---
ADMINISTERED DUE MEDS. PT STATED SHE HASN'T DEFECATE FOR DAYS AND SHE NEEDS SOMETHING FOR IT. PRN MED FOR CONSTIPATION ADMINISTERED.
[2022-10-26 05:48] LABS: BASOPHILS % (AUTO) 0.3 % (0.0-2.0); EOSINOPHILS % (AUTO) 0.7 % (0.0-4.0); HEMATOCRIT 33.3 % (36-48); HEMOGLOBIN 11.5 g/dL (12.0-16.0); LYMPHOCYTES # (AUTO) 1.4 K/uL (2.5-16.5); LYMPHOCYTES % (AUTO) 26.3 % (20.5-51.1); MEAN CORPUSCULAR HEMOGLOBIN 28 pg (27-31); MEAN CORPUSCULAR HGB CONC 34 g/dL (33-37); MEAN CORPUSCULAR VOLUME 82.3 fL (80-94); MONOCYTES # (AUTO) 1.7 K/uL (0.8-1.0); MONOCYTES % (AUTO) 32.5 % (1.7-9.3); NEUTROPHILS # (AUTO) 2.1 K/uL (1.8-7.7); NEUTROPHILS % (AUTO) 40.2 % (42.2-75.2); PLATELET COUNT (AUTO) 144 K/uL (140-450); RED BLOOD CELL COUNT(AUTO) 4.05 MIL/uL (4.20-5.40); RED CELL DISTRIBUTION WIDTH 15.6 % (11.6-13.7); WHITE BLOOD COUNT (AUTO) 5.2 K/uL (4.8-10.8)
[2022-10-26 06:08] LABS: ALBUMIN 3.3 g/dL (3.4-5.0); ANION GAP 10.7 (8-16); MAGNESIUM 1.9 mg/dL (1.8-2.4); POTASSIUM 3.7 mmol/L (3.5-5.1); TOTAL BILIRUBIN 0.5 mg/dL (0.0-1.0)
--- NOTE | 2022-10-26 07:03 | NUR ---
ENDORSED PT TO DAY SHIFT NURSE JA FOR CONTINUITY OF CARE. ALL NEEDS MET THROUGHOUT SHIFT. PT IS STABLE.
[2022-10-26] MEDS ORDERED: CIPR500T4 PO (08:49)
[2022-10-26] MEDS: VITAMIN D 400 IU TAB PO SCH (09:00)
[2022-10-26] MEDS: ENOXAPARIN 40 MG/0.4 ML SYR SUBQ SCH (09:00)
[2022-10-26] MEDS: buPROPion 150 MG TABER PO SCH (09:00)
[2022-10-26 09:13] VITALS: BP 128/80
--- NOTE | 2022-10-26 10:44 | NUR ---
PATIENT DISCHARGE TO HOME WITH A COPY OF DISCHARGE INSTRUCTION AND ALL BELONGINGS. INTACT 24 GAUGE REMOVAL FROM RIGHT FOREARM AND LEFT FOREARM. PATIENT IDENTIFICATION BRACELET REMOVAL. PATIENT AND FAMILY VERBALIZE UNDERSTANDING OF TEACHING AND FOLLOW UP CARE.
== END 2022-10-26 11:07 | disposition home or self-care (01) | DRG 720 ==
LOC: MED 09:18 → MTU 13:58
PROVIDERS: ADMIT Internal Medicine; ATTEND Internal Medicine
DX: A41.50 Gram-negative sepsis, unspecified (principal); J96.20 Acute and chronic respiratory failure, unspecified whether with hypoxia or hypercapnia; E03.9 Hypothyroidism, unspecified; N39.0 Urinary tract infection, site not specified; E78.5 Hyperlipidemia, unspecified; I10 Essential (primary) hypertension; J44.9 Chronic obstructive pulmonary disease, unspecified; Z20.822 Contact with and (suspected) exposure to COVID-19; Q85.00 Neurofibromatosis, unspecified
CPT/HCPCS: 36415; 71045; 80053; 81001; 83605; 83735; 83880; 84484; 85025; 87040; 87081; 87086; 93005; 94640; 96361; 96374; 96375; 99291; J0696; J1650; J2270; J2405; J2930; J7060; J7613; J7644; Q0092

== ENCOUNTER 2023-10-18 12:49 | Inpatient (IN) | payer OTHER ==
[~2023-10-18] VITALS: Ht 170.2 cm; Wt 108.0 kg
[~2023-10-18 12:49] MED LIST changes: +ACET-5634 PO; -ACET-5636 PO; -ACYC-278 PO; -ALBU0.0912 IH; +ALBU1SPR IH; +BIOT10002 PO; +BUPR150T12 PO; +CALC-1030 PO; +CIPR500T4 PO; -DOXY-690 PO; +LEVO0.083 PO; +MULT-2253 PO; -PRED20TA5 PO; -SERT25TA PO; +[UNRECOGNIZED DRUG - CODE] PO; -[UNRECOGNIZED DRUG - CODE] PO
[2023-10-18 13:17] VITALS: BP 139/76; PULSE 75; RESP 16; TEMP 98.2; O2SAT 99
[2023-10-18 14:14] LABS: HEMATOCRIT 38.6 % (36-48); HEMOGLOBIN 13.5 g/dL (12.0-16.0); MEAN CORPUSCULAR HEMOGLOBIN 29 pg (27-31); MEAN CORPUSCULAR HGB CONC 35 g/dL (33-37); MEAN CORPUSCULAR VOLUME 82.9 fL (80-94); PLATELET COUNT (AUTO) 166 K/uL (140-450); RED BLOOD CELL COUNT(AUTO) 4.66 MIL/uL (4.20-5.40); RED CELL DISTRIBUTION WIDTH 15.8 % (11.6-13.7); WHITE BLOOD COUNT (AUTO) 6.8 K/uL (4.8-10.8)
[2023-10-18 14:26] LABS: ANION GAP 10.2 (8-16); CALCIUM 9.2 mg/dL (8.5-10.1); CARBON DIOXIDE 29.9 mmol/L (21-32); CREATININE 0.9 mg/dL (0.6-1.3); POTASSIUM 4.1 mmol/L (3.5-5.1)
[2023-10-18 14:42] LABS: EOSINOPHILS % (MANUAL) 1 % (0-4); LYMPHOCYTES % (MANUAL) 32 % (20-46); MONOCYTES % (MANUAL) 13 % (5-12); PLATELET ESTIMATE ADEQUATE
[2023-10-18] MEDS ORDERED: KCL 20 MEQ IN 100 mL PREMIX 200 ML IV PRN (15:55)
[2023-10-18] MEDS ORDERED: POTASSIUM CHLORIDE 10 MEQ TABER PO PRN (15:55)
[2023-10-18] MEDS ORDERED: MAG SULF 2000 MG/WATER PREMIX 50 ML IV PRN (15:55)
[2023-10-18] MEDS ORDERED: HYDROcodone/APAP 5/325 MG 1 TAB TAB PO PRN (15:55)
[2023-10-18] MEDS ORDERED: ONDANSETRON 4 MG/2 ML VIAL IVP PRN (15:55)
[2023-10-18] MEDS ORDERED: cefTRIAXone 1,000 MG VIAL ONE (15:56)
[2023-10-18] MEDS: NACL 0.9% 1,000 ML IV SCH ×2 (16:14→18:41)
[2023-10-18] MEDS: cefTRIAXone 1,000 MG in DEXT 5% MINI-BAG PLUS 50 ML IV ONE (16:14)
[2023-10-18 16:16] LABS: LACTIC ACID 0.6 mmol/L (0.4-2.0)
[2023-10-18] MEDS: MORPHINE SULFATE 4 MG/ML SYR IVP PRN (16:22)
[2023-10-18 19:55] LABS: APPEARANCE,URINE CLEAR (CLEAR); BILIRUBIN,URINE NEGATIVE (NEGATIVE); BLOOD, URINE NEGATIVE (NEGATIVE); COLOR,URINE YELLOW (YELLOW); LEUKOCYTE ESTERASE ,URINE NEGATIVE (NEGATIVE); NITRITE, URINE NEGATIVE (NEGATIVE); PH,URINE 8.5 (5.0-9.0); PROTEIN,URINE NEGATIVE (NEGATIVE); UGLUCOSE NEGATIVE (NEGATIVE); UROBILINOGEN,URINE 0.2 EU/dL (0.2 - 1)
[2023-10-18] MEDS ORDERED: BUPR-160 PO (20:06)
[2023-10-18] MEDS ORDERED: LEVO0.083 PO (20:06)
[2023-10-18] MEDS ORDERED: MONT-72 PO (20:06)
[2023-10-18] MEDS ORDERED: SERT100T PO (20:06)
[2023-10-18] MEDS ORDERED: ALBU0.0912 IH (20:06)
[2023-10-19] VITALS (7 sets, daily range): BP systolic 108–134; BP diastolic 43–65; PULSE 61–76; RESP 17–20; TEMP 97.5–97.8; O2SAT 93–98
[2023-10-19] MEDS ORDERED: SIMVASTATIN 40 MG TAB ONE (00:21)
[2023-10-19] MEDS ORDERED: CRUSHER, PILL MC ONE (00:22)
[2023-10-19] MEDS: SERTRALINE 50 MG TAB PO SCH ×2 (00:29→20:41)
[2023-10-19] MEDS: traZODone 50 MG TAB PO SCH (00:32)
[2023-10-19] MEDS: SIMVASTATIN 20 MG TAB PO SCH (01:00)
[2023-10-19] MEDS: LEVOTHYROXINE 0.088 MG TAB PO SCH (06:57)
[2023-10-19 06:58] LABS: BASOPHILS # (AUTO) 0.1 K/uL (0.00-0.22); BASOPHILS % (AUTO) 2.3 % (0.0-2.0); EOSINOPHILS # (AUTO) 0.1 K/uL (0-0.4); EOSINOPHILS % (AUTO) 0.8 % (0.0-4.0); HEMATOCRIT 36.2 % (36-48); HEMOGLOBIN 12.5 g/dL (12.0-16.0); LYMPHOCYTES # (AUTO) 1.9 K/uL (2.5-16.5); LYMPHOCYTES % (AUTO) 30.2 % (20.5-51.1); MEAN CORPUSCULAR HEMOGLOBIN 29 pg (27-31); MEAN CORPUSCULAR HGB CONC 35 g/dL (33-37); MONOCYTES # (AUTO) 1.1 K/uL (0.8-1.0); MONOCYTES % (AUTO) 18.6 % (1.7-9.3); NEUTROPHILS % (AUTO) 48.1 % (42.2-75.2); PLATELET COUNT (AUTO) 142 K/uL (140-450); RED BLOOD CELL COUNT(AUTO) 4.31 MIL/uL (4.20-5.40); RED CELL DISTRIBUTION WIDTH 15.5 % (11.6-13.7); WHITE BLOOD COUNT (AUTO) 6.2 K/uL (4.8-10.8)
[2023-10-19 07:10] LABS: CALCIUM 8.4 mg/dL (8.5-10.1); CREATININE 0.9 mg/dL (0.6-1.3); MAGNESIUM 1.7 mg/dL (1.8-2.4); TOTAL BILIRUBIN 0.3 mg/dL (0.0-1.0); TOTAL PROTEIN, SERUM 6.7 g/dL (6.4-8.2)
[2023-10-19] MEDS: buPROPion 75 MG TAB PO SCH (09:54)
[2023-10-19] MEDS: MONTELUKAST SODIUM 10 MG TAB PO SCH (09:55)
[2023-10-19] MEDS: MECLIZINE 25 MG TAB PO PRN (15:48)
[2023-10-19] MEDS: FUROSEMIDE 20 MG/2 ML VIAL IVP ONE (15:50)
[2023-10-19] MEDS: SIMVASTATIN 10 MG TAB PO SCH (20:41)
[2023-10-19] MEDS: ACETAMINOPHEN 325 MG TAB PO PRN (20:42)
[2023-10-19] MEDS ORDERED: SIMVASTATIN 10 MG TAB PO SCH (21:00)
[2023-10-19] MEDS ORDERED: traZODone 50 MG TAB PO SCH ×2 (21:00)
[2023-10-19] MEDS: MAGNESIUM OXIDE 400 MG TAB PO PRN (23:40)
[2023-10-20] VITALS (11 sets, daily range): BP systolic 107–138; BP diastolic 58–68; PULSE 56–79; RESP 17–18; TEMP 97.3–98.3; O2SAT 92–99
[2023-10-20 06:57] LABS: HEMATOCRIT 38.3 % (36-48); HEMOGLOBIN 13.1 g/dL (12.0-16.0); MEAN CORPUSCULAR HEMOGLOBIN 29 pg (27-31); MEAN CORPUSCULAR HGB CONC 34 g/dL (33-37); MEAN CORPUSCULAR VOLUME 83.6 fL (80-94); PLATELET COUNT (AUTO) 165 K/uL (140-450); RED BLOOD CELL COUNT(AUTO) 4.58 MIL/uL (4.20-5.40); RED CELL DISTRIBUTION WIDTH 15.3 % (11.6-13.7)
[2023-10-20 07:26] LABS: BASOPHILS % (MANUAL) 0 % (0-2); EOSINOPHILS % (MANUAL) 0 % (0-4); LYMPHOCYTES % (MANUAL) 26 % (20-46); MONOCYTES % (MANUAL) 13 % (5-12); PLATELET ESTIMATE ADEQUATE
[2023-10-20 07:27] LABS: ALBUMIN 3.3 g/dL (3.4-5.0); ANION GAP 10.9 (8-16); CALCIUM 9.1 mg/dL (8.5-10.1); CREATININE 0.8 mg/dL (0.6-1.3); MAGNESIUM 2.3 mg/dL (1.8-2.4); POTASSIUM 3.9 mmol/L (3.5-5.1); TOTAL BILIRUBIN 0.4 mg/dL (0.0-1.0); TOTAL PROTEIN, SERUM 7.7 g/dL (6.4-8.2)
[2023-10-20] MEDS: buPROPion 150 MG TABER PO SCH (08:45)
[2023-10-20] MEDS ORDERED: LEVOTHYROXINE 0.088 MG TAB PO SCH ×2 (09:00)
[2023-10-20] MEDS ORDERED: MONTELUKAST SODIUM 10 MG TAB PO SCH (09:00)
[2023-10-21] VITALS: BP 146/64; PULSE 58; PULSE 61; RESP 19; TEMP 97.6; O2SAT 97
[2023-10-21 04:00] VITALS: BP 133/61; PULSE 57; RESP 18; TEMP 97.7; O2SAT 95
[2023-10-21 04:08] VITALS: PULSE 57
[2023-10-21 06:34] LABS: BASOPHILS % (AUTO) 0.3 % (0.0-2.0); EOSINOPHILS % (AUTO) 0.5 % (0.0-4.0); HEMOGLOBIN 13.8 g/dL (12.0-16.0); LYMPHOCYTES # (AUTO) 1.6 K/uL (2.5-16.5); LYMPHOCYTES % (AUTO) 16.3 % (20.5-51.1); MEAN CORPUSCULAR HEMOGLOBIN 29 pg (27-31); MEAN CORPUSCULAR HGB CONC 35 g/dL (33-37); MEAN CORPUSCULAR VOLUME 83.7 fL (80-94); MONOCYTES # (AUTO) 1.1 K/uL (0.8-1.0); NEUTROPHILS # (AUTO) 6.9 K/uL (1.8-7.7); NEUTROPHILS % (AUTO) 71.9 % (42.2-75.2); PLATELET COUNT (AUTO) 152 K/uL (140-450); RED BLOOD CELL COUNT(AUTO) 4.78 MIL/uL (4.20-5.40); RED CELL DISTRIBUTION WIDTH 15.8 % (11.6-13.7); WHITE BLOOD COUNT (AUTO) 9.5 K/uL (4.8-10.8)
[2023-10-21 06:55] LABS: ALBUMIN 3.5 g/dL (3.4-5.0); CALCIUM 9.3 mg/dL (8.5-10.1); CARBON DIOXIDE 29.7 mmol/L (21-32); CREATININE 0.9 mg/dL (0.6-1.3); POTASSIUM 3.7 mmol/L (3.5-5.1); TOTAL BILIRUBIN 0.5 mg/dL (0.0-1.0); TOTAL PROTEIN, SERUM 8.1 g/dL (6.4-8.2)
[2023-10-21 08:00] VITALS: BP 115/72; PULSE 61; PULSE 65; PULSE 73; RESP 17; RESP 19; TEMP 97.1; O2SAT 92; O2SAT 96; O2SAT 99
[2023-10-21 12:00] VITALS: BP 116/68; PULSE 60; PULSE 69; RESP 18; TEMP 97.8; O2SAT 96
== END 2023-10-21 14:05 | disposition home health service (06) | DRG 189 ==
LOC: MED 12:49 → MTU 15:56 → OBSVTOIN 10-21 09:57
PROVIDERS: ADMIT Hospitalist; ATTEND Hospitalist
DX: J96.01 Acute respiratory failure with hypoxia (principal); R42 Dizziness and giddiness; F41.9 Anxiety disorder, unspecified; F32.A Depression, unspecified; E03.9 Hypothyroidism, unspecified; E78.9 Disorder of lipoprotein metabolism, unspecified
CPT/HCPCS: 96374; 99285; G0378; 36415; 70450; 71045; 80048; 80053; 81003; 83605; 83735; 83880; 84484; 85025; 87086; 93005; 93880; 97112; 97116; 97530; J0696; J1644; J2270; J8597; Q0092